=== PATIENT | male | born 1980 | race Caucasian/White ===

== ENCOUNTER 2017-09-26 14:44 | Emergency (ER) | payer SELFPAY ==
[~2017-09-26] VITALS: Ht 175.3 cm; Wt 72.0 kg
[~2017-09-26 14:44] MED LIST: ADDE30XR PO; CEPH500C3 PO; XANA1TAB6 PO
[2017-09-26 14:46] VITALS: BP 128/82; PULSE 114; RESP 18; TEMP 97.9; O2SAT 97
== END 2017-09-26 16:20 | disposition left against medical advice (07) ==
LOC: NED 14:44
DX: Z53.21 Procedure and treatment not carried out due to patient leaving prior to being seen by health care provider (principal)
CPT/HCPCS: 99281

== ENCOUNTER 2017-10-20 15:04 | Emergency (ER) | payer SELFPAY ==
[2017-10-20 15:11] VITALS: BP 127/70; PULSE 95; RESP 16; TEMP 98.6
[2017-10-20] MEDS ORDERED: CEPH-460 PO (15:24)
[2017-10-20] MEDS ORDERED: BACT800T5 PO (15:24)
--- NOTE | 2017-10-20 15:28 | PD ---
HPI Chief Complaint: Skin Problem Time Seen by Provider: 15:20 Travel History International Travel<30 days: No Contact w/Intl Traveler<30days: No Traveled to known affect area: No History of Present Illness HPI 36-year-old male presents for evaluation of a skin infection. He reports that he injects testosterone into his buttocks. For the past 2 weeks he has had an area of skin redness on the right buttocks as well as on the lateral right thigh. Associated pain, aching, worse with palpation, occasional drainage from the one on the buttocks. Denies any objective fevers. He has had occasional chills. He has no other complaints at this time. [facility] Past Medical History ADD: Yes Anxiety: Yes Diminished Hearing: No Social History Alcohol Use: No Tobacco Use: Yes (/ ppd) Substance Use: No Allergies-Medications (Allergen,Severity, Reaction): Coded Allergies: No Known Allergies (Unverified Adverse Reaction, Unknown, 10/20/17) Reported Meds & Prescriptions Reported Meds & Active Scripts Active Keflex (Cephalexin) 500 Mg Capsule 500 Mg PO Q8H 10 Days Bactrim DS (Sulfamethoxazole-Trimethoprim) 800-160 Mg Tab 1 Tab PO BID Review of Systems Except as stated in HPI: all other systems reviewed are Neg General / Constitutional: Positive: Chills, No: Fever Physical Exam Narrative GENERAL: Well-nourished male in no acute distress SKIN: Warm and dry. 2 cm area of induration and erythema to the right buttocks which is excoriated. 2 cm area of erythema and induration to the right thigh. No fluctuance or drainage. HEAD: Atraumatic. Normocephalic. EYES: Pupils equal and round. No scleral icterus. No injection or drainage. ENT: No nasal bleeding or discharge. Mucous membranes pink and moist. NECK: Trachea midline. No JVD. CARDIOVASCULAR: Regular rate and rhythm. No murmur appreciated. RESPIRATORY: No accessory muscle use. Clear to auscultation. Breath sounds equal bilaterally. GASTROINTESTINAL: Abdomen soft, non-tender, nondistended. Hepatic and splenic margins not palpable. Data Data Last Documented VS Vital Signs Date Time Temp Pulse Resp B/P (MAP) Pulse Ox O2 Delivery O2 Flow Rate FiO2 10/20/17 15:11 98.6 95 16 127/70 (89) Orders Orders Sulfamet-Trimeth Ds 800-160 Mg (Bactrim (10/20/17 15:30) Cephalexin (Keflex) (10/20/17 15:30) Ed Discharge Order (10/20/17 15:24) [facility] Medical Decision Making Medical Screen Exam Complete: Yes Emergency Medical Condition: Yes Medical Record Reviewed: Yes Differential Diagnosis Cellulitis, abscess, myositis Narrative Course The patient will be treated with Bactrim and Keflex. Discussed signs and symptoms that would warrant returning to the emergency room. Diagnosis Primary Impression: Cellulitis Additional Instructions: Medication as prescribed. Warm compresses several times a day 15 minutes at a time. Return for any acutely new or worsening symptoms. Med/Other Pt SpecificInfo: Prescription(s) given Scripts Cephalexin (Keflex) 500 Mg Capsule 500 MG PO Q8H for Infection for 10 Days, #30 CAP 0 Refills Prov: Soto Le MD 10/20/17 Sulfamethoxazole-Trimethoprim (Bactrim DS) 800-160 Mg Tab 1 TAB PO BID for Infection, #20 TAB 0 Refills Prov: Soto Le MD 10/20/17 Disposition: 01 DISCHARGE HOME Condition: Stable Hugh Ramirez Oct 20, 2017 15:28
[2017-10-20] MEDS ORDERED: CEPHALEXIN MONOHYDRATE 500 MG CAP PO ONE (15:30)
[2017-10-20] MEDS ORDERED: SULFAMETHOXAZOLE-TRIMETHOPRIM DS 800-160 MG TAB PO ONE (15:30)
== END 2017-10-20 15:37 | disposition home or self-care (01) ==
LOC: NEPK 15:04
DX: L03.90 Cellulitis, unspecified (principal); F17.200 Nicotine dependence, unspecified, uncomplicated
CPT/HCPCS: 99283